=== PATIENT | male | born 1990 | race Caucasian/White ===

== ENCOUNTER 2017-09-09 13:23 | Inpatient (IN) | payer OTHER ==
[~2017-09-09] VITALS: Ht 172.7 cm; Wt 77.1 kg
[2017-09-09] MEDS ORDERED: NS IV 1000 ML 1,000 ML IV ONE ×2 (13:37→14:32)
[2017-09-09] MEDS ORDERED: fentaNYL INJECTION 100 MCG/2 ML AMP IVP STA (13:37)
[2017-09-09 13:45] LABS: BASOPHILS % (AUTO) 0 % (0-10); EOSINOPHILS % (AUTO) 0 % (0-10); HEMATOCRIT 48 % (40-54); HEMOGLOBIN 16.7 G/DL (13.3-17.7); LYMPHOCYTES # (AUTO) 0.8 X 10^3 (1.0-4.0); LYMPHOCYTES % (AUTO) 5 % (12-44); MEAN CORPUSCULAR HEMOGLOBIN 31 PG (25-34); MEAN CORPUSCULAR HGB CONC 35 G/DL (32-36); MEAN CORPUSCULAR VOLUME 89 FL (80-99); MEAN PLATELET VOLUME 10.3 FL (7.4-10.4); MONOCYTES # (AUTO) 1.7 X 10^3 (0.0-1.0); MONOCYTES % (AUTO) 9 % (0-12); NEUTROPHILS # (AUTO) 15.3 X 10^3 (1.8-7.8); NEUTROPHILS % (AUTO) 86 % (42-75); PLATELET COUNT 248 10^3/uL (130-400); RED BLOOD COUNT 5.32 10^6/uL (4.35-5.85); WHITE BLOOD COUNT 17.8 10^3/uL (4.3-11.0)
[2017-09-09] MEDS ORDERED: ONDANSETRON 4 MG/2 ML (SDV) Z0FRAN IVP ONE ×2 (13:45→14:45)
[2017-09-09] MEDS ORDERED: IOHEXOL 350 MG/ML 100 ML (OMNIPAQUE 350) VIAL IV ONE (14:00)
[2017-09-09] MEDS ORDERED: NS 100 ML (IVPB) BAG IV ONE (14:00)
[2017-09-09 14:03] LABS: ALANINE AMINOTRANSFERASE 14 U/L (0-55); ALBUMIN 4.4 GM/DL (3.2-4.5); ALKALINE PHOSPHATASE 64 U/L (40-136); BILIRUBIN,TOTAL 1.3 MG/DL (0.1-1.0); BUN/CREATININE RATIO 11; CALCIUM 9.3 MG/DL (8.5-10.1); CARBON DIOXIDE 22 MMOL/L (21-32); CHLORIDE 99 MMOL/L (98-107); GFR ESTIMATED > 60; GLUCOSE 139 MG/DL (70-105); LIPASE 15 U/L (8-78); POTASSIUM 3.5 MMOL/L (3.6-5.0); SODIUM 135 MMOL/L (135-145); TOTAL PROTEIN 7.4 GM/DL (6.4-8.2)
[2017-09-09 14:07] LABS: LYMPHOCYTES % (MANUAL) 5 %; MONOCYTES % (MANUAL) 6 %; NEUTROPHILS % (MANUAL) 89 %; RBC MORPH NORMAL
[2017-09-09] MEDS ORDERED: NS IV 500 ML 500 ML IV ONE (14:32)
[2017-09-09] MEDS ORDERED: KETOROLAC 30 MG/ML VIAL IVP STA (14:38)
[2017-09-09] MEDS ORDERED: morphine INJ 10 MG/ML 1ML (SYR OR VIAL) IVP STA (14:38)
--- NOTE | 2017-09-09 14:42 | Diagnostic Imaging Report ---
PROCEDURE: CT abdomen and pelvis with and without contrast. TECHNIQUE: Precontrast acquisitions were acquired through the abdomen and pelvis. Multiple contiguous axial images were obtained through the abdomen and pelvis after the administration of intravenous contrast. INDICATION: Right lower quadrant and right groin pain. There are no prior studies available for comparison. FINDINGS: There is a 1.6 x 2.0 cm tubular structure in the right lower quadrant. I do suspect that this represents an inflamed appendix. Furthermore, there are several droplets of gas near the tip of this tubular structure consistent with perforation of the appendix. There is also marked distortion of the mesenteric fat in the right lower quadrant. This does suggest edema/inflammation. There is a small 2.3 x 3.4 CM collection of fluid along the anterior aspect of the right lower quadrant. This may represent an infected fluid. There is no evidence for drainable abscess at this time. The images through the upper abdomen also show a few droplets of gas about the liver and the gallbladder fossa consistent with perforation of the appendix. There are numerous fluid-filled segments of small bowel in the left mid abdomen. Most likely these are related to an ileus secondary to the ruptured appendix. There is also moderate amount of free fluid in the pelvis. This too is most likely a sequela of the right lower quadrant pathology. The urinary bladder and prostate gland are grossly unremarkable. The kidneys, the liver, the spleen, the pancreas, the adrenals, the gallbladder, the aorta and inferior vena cava show no sign of an acute abnormality. The stomach is partially filled with fluid and consequently difficult to assess. There does appear to be a 3.3 x 4.8 cm hiatal hernia. This is somewhat unusual in a patient of this age. The lung bases are clear. The bone windows show no sign of a fracture or destructive lesion. IMPRESSION: 1. The findings would be consistent with appendicitis with perforation of the appendix. There is marked distortion of mesenteric fat in the right lower quadrant reflecting edema/inflammation. There is a small amount of infected fluid in this area but there is no drainable abscess identified at this time. 2. The fluid-filled segments of small bowel are most likely related to an ileus secondary to the inflammation of the appendix. There is also a moderate amount of free fluid in the pelvis. 3. There is no acute abnormality of the abdomen or pelvis noted otherwise. 4. There is a hiatal hernia. 5. These results were discussed with OCTAVIO Falk at the time of this dictation. CRITICAL FINDING Dictated by: Dictated on workstation # [id number]
[2017-09-09] MEDS ORDERED: FAMOTIDINE 20MG/2ML IV (PEPCID) IV STA (14:45)
[2017-09-09] MEDS ORDERED: PIPERACILLIN SODIUM/TAZOBACTAM 4.5 GM in NS (IVPB) 100 ML IV ONE (14:45)
--- OUTSIDE RECORDS SUMMARY | 2017-09-09 15:06 | XMS REPORT | Referral Summary ---
Author Author [facility] Organization [facility] Address Unknown Phone Unavailable Care Team Providers Care Board Attendant Name Role Phone Jenaro Tsai PCP Encounter VC Date(s): 08/26/16 - 08/26/16 [facility] [id number] [id number] Discharge Diagnosis: Visit for well man health check Discharge Diagnosis: Tobacco use Discharge Disposition: 01-Home or Self Care Attending Physician: Jenaro Tsai DO Admitting Physician: Jenaro Tsai DO Vital Signs Most recent to 1 oldest [Reference Range]: Peripheral Pulse 91 bpm Rate [60-100 bpm] (08/26/16 9:12 AM) Blood Pressure 134/94 mmHg [90-140/60-90 mmHg] (08/26/16 9:12 AM) Problem List Condition Effective Dates Status Health Status Informant Tobacco Active use(Confirmed) Allergies, Adverse Reactions, Alerts No Known Medication Allergies Medications Chantix Starter Pack 0.5 mg-1 mg oral tablet 1 tabs, Oral, BID, as directed on package labeling, X 30 days, # 60 tabs, 0 Refill(s), Pharmacy: [address] [id number] [facility] Start Date: 08/26/16 Stop Date: 09/25/16 Status: Ordered Misc Medication steroid ointment for skin, 0 Refill(s) Start Date: 08/26/16 Status: Ordered Results No data available for this section Immunizations No data available for this section Procedures No data available for this section Social History Social History Type Response Smoking Status Current every day smoker Assessment and Plan Extracted from: Title: OV [employer]OR [employer] Well Male Exam and Author: Jenaro Tsai DO Date: 08/26/16 tobacco Impression and Plan Diagnosis Visit for well man health check ([id number] Z00.00, Discharge, Medical). Tobacco use ([id number] Z72.0, Discharge, Medical). Orders Orders (Selected) Prescriptions Prescribed Chantix Starter Pack 0.5 mg-1 mg oral tablet: 1 tabs, Oral, BID, for 30 days, as directed on package labeling, 60 tabs, 0 Refill(s). Doing well. Repeat well male exam in a year. Patient was given discount card for Chantix and I sent prescription as above. He will make an appointment for 3 month follow-up and will let me know if he has any issues prior to that. She will contact the week before he runs out of his prescription and we will send a continuing month pack as long as he is not having significant side effects. I did camp counselor him on cholesterol screening and he will let me know if his insurance wants that. Call with questions or concerns before his next office visit. 3-10 minutes spent in tobacco cessation counselling.
--- NOTE | 2017-09-09 15:44 | ED GU-Male ---
General Chief Complaint: Abdominal/GI Problems Stated Complaint: SEPSIS,RUPTURED APPENDICITIS,HEMATEMSIS Nursing Triage Note: PT REPORTS ABD PAIN, N/V, AND FEVER SINCE YESTERDAY. Source: patient Exam Limitations: no limitations History of Present Illness Date Seen by Provider: Sep 09, 2017 Time Seen by Provider: 13:30 Allergies and Home Medications Allergies Coded Allergies: No Known Drug Allergies (Unverified , 09/09/17) Past Mwszzki-Twfjwx-Nmoeie Hx Patient Social History Alcohol Use: Occasionally Uses Recreational Drug Use: No Smoking Status: Current Everyday Smoker Type Used: Cigarettes 2nd Hand Smoke Exposure: No Recent Foreign Travel: No Contact w/Someone Who Travel: No Recent Infectious Disease Expo: No Recent Hopitalizations: No Seasonal Allergies Seasonal Allergies: No Surgeries History of Surgeries: No Physical Exam Vital Signs Vital Signs - First Documented 09/09/17 13:30 Temp 100.0 Pulse 126 Resp 20 B/P (MAP) 148/100 (116) Pulse Ox 97 O2 Delivery Room Air Capillary Refill : Less Than 3 Seconds Focused Exam Evaluation Lactate Level Laboratory Tests 09/09/17 14:17: Lactic Acid Level 3.55*H Lactic Acid Level Laboratory Tests Test 09/09/17 14:17 Lactic Acid Level 3.55 MMOL/L (0.50-2.00) *H Progress/Results/Core Measures Suspected Sepsis Recent Fever Within 48 Hours: No Infection Criteria Present: None New/Unexplained Altered Menta: No Sepsis Screen: No Definite Risk Sepsis Diagnosis: SIRS Temperature:100.0 Pulse: 126 Respiratory Rate: 20 Laboratory Tests 09/09/17 13:37: White Blood Count 17.8H Blood Pressure 148 /100 Mean: 116 Laboratory Tests 09/09/17 14:17: Lactic Acid Level 3.55*H Laboratory Tests 09/09/17 13:37: Creatinine 0.90, Platelet Count 248, Total Bilirubin 1.3H Results/Orders Lab Results Laboratory Tests Test 09/09/17 13:37 09/09/17 14:17 Range/Units White Blood Count 17.8 H 4.3-11.0 10^3/uL Red Blood Count 5.32 4.35-5.85 10^6/uL Hemoglobin 16.7 13.3-17.7 G/DL Hematocrit 48 40-54 % Mean Corpuscular Volume 89 80-99 FL Mean Corpuscular Hemoglobin 31 25-34 PG Mean Corpuscular Hemoglobin Concent 35 32-36 G/DL Red Cell Distribution Width 14.0 10.0-14.5 % Platelet Count 248 130-400 10^3/uL Mean Platelet Volume 10.3 7.4-10.4 FL Neutrophils (%) (Auto) 86 H 42-75 % Lymphocytes (%) (Auto) 5 L 12-44 % Monocytes (%) (Auto) 9 0-12 % Eosinophils (%) (Auto) 0 0-10 % Basophils (%) (Auto) 0 0-10 % Neutrophils # (Auto) 15.3 H 1.8-7.8 X 10^3 Lymphocytes # (Auto) 0.8 L 1.0-4.0 X 10^3 Monocytes # (Auto) 1.7 H 0.0-1.0 X 10^3 Eosinophils # (Auto) 0.0 0.0-0.3 10^3/uL Basophils # (Auto) 0.0 0.0-0.1 10^3/uL Neutrophils % (Manual) 89 % Lymphocytes % (Manual) 5 % Monocytes % (Manual) 6 % Blood Morphology Comment NORMAL Sodium Level 135 135-145 MMOL/L Potassium Level 3.5 L 3.6-5.0 MMOL/L Chloride Level 99 98-107 MMOL/L Carbon Dioxide Level 22 21-32 MMOL/L Anion Gap 14 5-14 MMOL/L Blood Urea Nitrogen 10 7-18 MG/DL Creatinine 0.90 0.60-1.30 MG/DL Estimat Glomerular Filtration Rate > 60 BUN/Creatinine Ratio 11 Glucose Level 139 H 70-105 MG/DL Calcium Level 9.3 8.5-10.1 MG/DL Total Bilirubin 1.3 H 0.1-1.0 MG/DL Aspartate Amino Transf (AST/SGOT) 14 5-34 U/L Alanine Aminotransferase (ALT/SGPT) 14 0-55 U/L Alkaline Phosphatase 64 40-136 U/L C-Reactive Protein High Sensitivity 18.99 H 0.00-0.50 MG/DL Total Protein 7.4 6.4-8.2 GM/DL Albumin 4.4 3.2-4.5 GM/DL Lipase 15 8-78 U/L Lactic Acid Level 3.55 *H 0.50-2.00 MMOL/L My Orders Orders - CHUYITA GREENWOOD Saline Lock/Iv-Start (09/09/17 13:37) Cbc With Automated Diff (09/09/17 13:37) Comprehensive Metabolic Panel (09/09/17 13:37) Hs C Reactive Protein (09/09/17 13:37) Lipase (09/09/17 13:37) Ua Culture If Indicated (09/09/17 13:37) Ns Iv 1000 Ml (Sodium Chloride 0.9%) (09/09/17 13:37) Ondansetron Injection (Zofran Injectio (09/09/17 13:45) Fentanyl Injection (Sublimaze Injection (09/09/17 13:37) Ct Abdomen/Pelvis W Wo (09/09/17 13:42) Drug Screen Stat (Urine) (09/09/17 13:44) Manual Differential (09/09/17 13:37) Iohexol Injection (Omnipaque 350 Mg/Ml 1 (09/09/17 14:00) Ns (Ivpb) (Sodium Chloride 0.9% Ivpb Bag (09/09/17 14:00) Lactic Acid Analyzer (09/09/17 13:48) Blood Culture (09/09/17 13:48) Piperacillin Sodium/Tazobactam (Zosyn Vi (09/09/17 14:45) Ns Iv 500 Ml (Sodium Chloride 0.9%) (09/09/17 14:32) Ns Iv 1000 Ml (Sodium Chloride 0.9%) (09/09/17 14:32) Ketorolac Injection (Toradol Injection) (09/09/17 14:38) Morphine Injection (Morphine Injection (09/09/17 14:38) Ondansetron Injection (Zofran Injectio (09/09/17 14:45) Famotidine Injection (Pepcid Injection) (09/09/17 14:45) Medications Given in ED Current Medications Medications Dose Ordered Sig/Candice Route Start Time Stop Time Status Last Admin Dose Admin Iohexol 100 ml ONCE ONCE IV 09/09/17 14:00 09/09/17 14:01 DC 09/09/17 14:01 100 ML Ondansetron HCl 4 mg ONCE ONCE IVP 09/09/17 13:45 09/09/17 13:46 DC 09/09/17 13:48 4 MG Ondansetron HCl 4 mg ONCE ONCE IVP 09/09/17 14:45 09/09/17 14:47 DC 09/09/17 14:49 4 MG Piperacillin Sod/ Tazobactam Sod 4.5 gm/Sodium Chloride 100 ml @ 200 mls/hr ONCE ONCE IV 09/09/17 14:45 09/09/17 15:14 DC 09/09/17 15:35 200 MLS/HR Sodium Chloride 100 ml ONCE ONCE IV 09/09/17 14:00 09/09/17 14:01 DC 09/09/17 14:01 100 ML Sodium Chloride 1,000 ml @ 0 mls/hr Q0M ONCE IV 09/09/17 13:37 09/09/17 13:40 DC 09/09/17 13:48 0 MLS/HR Vital Signs/I&O Vital Sign - Last 12Hours 09/09/17 13:30 Temp 100.0 Pulse 126 Resp 20 B/P (MAP) 148/100 (116) Pulse Ox 97 O2 Delivery Room Air Capillary Refill : Less Than 3 Seconds Blood Pressure Mean: 116 Departure Impression Disposition: ADMITTED INPATIENT Condition: Improved Departure-Patient Inst. Referrals: NO,LOCAL PHYSICIAN (PCP) Primary Care Physician CHUYITA GREENWOOD Sep 09, 2017 15:43
[2017-09-09 15:46] VITALS: BP 136/81
[2017-09-09] MEDS ORDERED: METHYLNALTREXONE 12 MG/0.6 ML (RELISTOR) VIAL SQ NR (16:24)
[2017-09-09] MEDS ORDERED: diphenhydrAMINE 50 MG/ML INJ (BENADRYL) IV PRN (16:30)
[2017-09-09] MEDS ORDERED: FAMOTIDINE 20MG/2ML IV (PEPCID) IV PRN (16:30)
[2017-09-09] MEDS ORDERED: ONDANSETRON 4 MG/2 ML (SDV) Z0FRAN IV PRN (16:30)
[2017-09-09] MEDS ORDERED: PROMETHAZINE INJ 25 MG/ML (PHENERGAN) AMP IV PRN (16:30)
[2017-09-09] MEDS ORDERED: HYDROcodone/APAP 5 MG/325 MG (LORTAB) TAB PO PRN (16:30)
[2017-09-09 16:46] VITALS: BP 122/72
[2017-09-09] MEDS: morphine PCA 30 MG/30 ML VIAL IV PRN (16:57)
[2017-09-09] MEDS: NS W/KCL 20 MEQ/L 1,000 ML IV SCH ×2 (16:58→20:47)
[2017-09-09 17:46] VITALS: BP 117/73
[2017-09-09 18:46] VITALS: BP 119/77
[2017-09-09] MEDS: PANTOPRAZOLE 40 MG/10 ML (PROTONIX) VIAL IV SCH (20:47)
[2017-09-09] MEDS: PIPERACILLIN SODIUM/TAZOBACTAM 4.5 GM in NS (IVPB) 100 ML IV SCH (20:48)
[2017-09-09 21:30] VITALS: BP 123/82
[2017-09-09 23:04] LABS: BILIRUBIN,URINE NEGATIVE (NEGATIVE); CLARITY,URINE CLEAR; COLOR,URINE YELLOW; GLUCOSE, URINE (UA) NEGATIVE (NEGATIVE); KETONES,URINE NEGATIVE (NEGATIVE); LEUKOCYTE ESTERASE ,URINE 1+ (NEGATIVE); NITRITE,URINE NEGATIVE (NEGATIVE); PH,URINE 6.5 (5-9); PROTEIN,URINE 2+ (NEGATIVE); UROBILINOGEN,URINE 1 MG/DL (NORMAL)
[2017-09-09 23:11] LABS: BACTERIA,URINE NEGATIVE /HPF; RBC,URINE RARE /HPF; WBC,URINE 0-2 /HPF
[2017-09-09 23:18] LABS: AMPHETAMINE SCREEN, URINE NEGATIVE (NEGATIVE); BARBITURATE SCREEN URINE NEGATIVE (NEGATIVE); BENZODIAZEPINES SCREEN URINE NEGATIVE (NEGATIVE); CANNABINOID SCREEN, URINE NEGATIVE (NEGATIVE); COCAINE SCREEN URINE NEGATIVE (NEGATIVE); METHADONE STAT NEGATIVE (NEGATIVE); METHAMPHETAMINE SCREEN URINE S NEGATIVE (NEGATIVE); OPIATE SCREEN URINE POSITIVE (NEGATIVE); OXYCODONE STAT NEGATIVE (NEGATIVE); PROPOXYPHENE STAT NEGATIVE (NEGATIVE); TRICYCLIC ANTIDEPRESSANTS SCRE NEGATIVE (NEGATIVE)
[2017-09-10] VITALS: BP 117/57
[2017-09-10] MEDS: NS W/KCL 20 MEQ/L 1,000 ML IV SCH ×6 (01:02→21:09)
[2017-09-10 04:00] VITALS: BP 123/60
[2017-09-10] MEDS: PIPERACILLIN SODIUM/TAZOBACTAM 4.5 GM in NS (IVPB) 100 ML IV SCH ×3 (05:10→21:09)
[2017-09-10] MEDS: ACETAMINOPHEN 500 MG TAB (TYLENOL) PO PRN ×2 (05:11→16:34)
[2017-09-10 06:37] LABS: BASOPHILS % (AUTO) 0 % (0-10); EOSINOPHILS % (AUTO) 0 % (0-10); HEMATOCRIT 41 % (40-54); HEMOGLOBIN 14.1 G/DL (13.3-17.7); LYMPHOCYTES # (AUTO) 0.7 X 10^3 (1.0-4.0); LYMPHOCYTES % (AUTO) 6 % (12-44); MEAN CORPUSCULAR HEMOGLOBIN 31 PG (25-34); MEAN CORPUSCULAR HGB CONC 34 G/DL (32-36); MEAN CORPUSCULAR VOLUME 91 FL (80-99); MEAN PLATELET VOLUME 10.1 FL (7.4-10.4); MONOCYTES # (AUTO) 0.8 X 10^3 (0.0-1.0); MONOCYTES % (AUTO) 7 % (0-12); NEUTROPHILS % (AUTO) 87 % (42-75); PLATELET COUNT 181 10^3/uL (130-400); RED BLOOD COUNT 4.53 10^6/uL (4.35-5.85); RED CELL DISTRIBUTION WIDTH 14.5 % (10.0-14.5); WHITE BLOOD COUNT 11.5 10^3/uL (4.3-11.0)
[2017-09-10 06:55] LABS: ALANINE AMINOTRANSFERASE 12 U/L (0-55); ALBUMIN 3.1 GM/DL (3.2-4.5); ALKALINE PHOSPHATASE 39 U/L (40-136); BILIRUBIN,TOTAL 1.1 MG/DL (0.1-1.0); BUN/CREATININE RATIO 16; CALCIUM 7.4 MG/DL (8.5-10.1); CARBON DIOXIDE 20 MMOL/L (21-32); CHLORIDE 108 MMOL/L (98-107); CREATININE SERUM 0.85 MG/DL (0.60-1.30); GFR ESTIMATED > 60; GLUCOSE 112 MG/DL (70-105); POTASSIUM 4.6 MMOL/L (3.6-5.0); SODIUM 135 MMOL/L (135-145); TOTAL PROTEIN 5.4 GM/DL (6.4-8.2)
[2017-09-10 08:00] VITALS: BP 121/64
[2017-09-10] MEDS: PANTOPRAZOLE 40 MG/10 ML (PROTONIX) VIAL IV SCH ×2 (08:08→21:08)
[2017-09-10] MEDS: morphine PCA 30 MG/30 ML VIAL IV PRN ×2 (09:21→22:29)
--- NOTE | 2017-09-10 11:16 | HISTORY AND PHYSICAL ---
DATE OF SERVICE: 09/09/2017 HISTORY OF PRESENT ILLNESS: The patient is a 27-year-old male who presented to [facility] Emergency Department with pain in the right lower abdominal quadrant. This gentleman was traveling from [place] to [place] for his work. He reports that the pain started in the abdomen which localized more towards the right lower abdominal quadrant 3 to 4 days before presenting to the emergency room. He states that the pain worsened and he developed fevers and chills. A CT scan was performed which did show significant inflammatory phlegmon as well as a small contained pockets of air consistent with a perforated appendicitis which has walled off. Since being admitted he was started on IV antibiotics as well as pain medication. He has felt better. It appears clinically as well and on CT scan that he does have an ileus and we will continue with a clear liquid diet; however, slowly advance. A CT scan does not show any drainable abscess at this time. PAST MEDICAL HISTORY: None. PAST SURGICAL HISTORY: None. ALLERGIES: No known drug allergies. MEDICATIONS: None. SOCIAL HISTORY: Positive smoke, five pack years. Social alcohol. FAMILY HISTORY: Noncontributory. VITAL SIGNS: Temperature 100.1, blood pressure 121/64, pulse 124, respirations 18, pulse ox 93% on room air. REVIEW OF SYSTEMS: A well-nourished male currently in no acute distress. He is not experiencing any shortness of breath or difficulty breathing. No chest pain, palpitations, or diaphoresis. He feels thirsty; however, after taking in liquids, he will feel nauseous; however, no vomiting. He reports not having a bowel movement for greater than one week. He does not report any previous history of red blood per rectum nor any dark tarry stools. Intermittent episodes of fevers and chills for the past several days. No recent inadvertent weight loss. All other review of system is negative. PHYSICAL EXAMINATION: CHEST: Clear. Good breath sounds bilaterally. HEART: Regular. No murmurs. HEENT: No scleral icterus. NECK: No cervical lymphadenopathy. ABDOMEN: Soft. There is a firmness in the right lower abdominal quadrant with pain to palpation at McBurney's point. There is voluntary guarding. SKIN: Warm and dry. LABORATORY DATA: WBC 11.5, hemoglobin 14.1, hematocrit 41, platelets 181. ASSESSMENT AND PLAN: A 27-year-old male with a perforated appendicitis which has walled off and contained. At this time, there is no drainable abscess or need for drain placement. We will recommend conservative management with IV hydration, IV antibiotics as well as bowel rest. Once he is able to tolerate adequate amounts of liquids, has good pain control with oral pain medication and a good functional capacity, we will discharge him home. He lives in [place], [place]; however, the option was given to him to proceed with continued conservative management which runs a risk of approximately 14% reoccurrence rate versus an elective appendectomy when the inflammation subsides, which will be approximately 6 to 8 weeks. Job ID: [id number] DocumentID: [id number] Dictated Date: 09/10/2017 11:01:51 Industrial Controller Date: 09/10/2017 11:15:41 Dictated By: TIFFANY DUNLAP MD MTDD
[2017-09-10 12:00] VITALS: BP 134/69
[2017-09-10] MEDS: POLYETHYLENE GLYCOL 17 GM (MIRALAX) PACK PO PRN ×2 (16:34→21:13)
[2017-09-10 16:56] VITALS: BP 144/75
[2017-09-10 20:00] VITALS: BP 125/70
[2017-09-10] MEDS: DOCUSATE SODIUM 100 MG (COLACE) CAP PO SCH (21:08)
[2017-09-11] VITALS: BP 132/69
[2017-09-11 04:00] VITALS: BP 135/77
[2017-09-11] MEDS: NS W/KCL 20 MEQ/L 1,000 ML IV SCH ×6 (05:02→18:31)
[2017-09-11] MEDS: PIPERACILLIN SODIUM/TAZOBACTAM 4.5 GM in NS (IVPB) 100 ML IV SCH ×3 (05:02→21:59)
[2017-09-11 08:00] VITALS: BP 139/84
[2017-09-11] MEDS: PANTOPRAZOLE 40 MG/10 ML (PROTONIX) VIAL IV SCH ×2 (08:52→21:59)
[2017-09-11] MEDS: ACETAMINOPHEN 500 MG TAB (TYLENOL) PO PRN ×2 (08:52→19:55)
[2017-09-11] MEDS: POLYETHYLENE GLYCOL 17 GM (MIRALAX) PACK PO PRN (08:52)
[2017-09-11] MEDS: DOCUSATE SODIUM 100 MG (COLACE) CAP PO SCH ×2 (08:52→21:59)
[2017-09-11 12:00] VITALS: BP 152/81
[2017-09-11] MEDS: KETOROLAC 30 MG/ML VIAL IV PRN ×2 (12:45→18:31)
[2017-09-11 15:50] VITALS: BP 151/84
[2017-09-11 19:40] VITALS: BP 134/84
--- NOTE | 2017-09-11 21:37 | Progress Note (SOAP) ---
Subjective Date Seen by Provider: Sep 11, 2017 Time Seen by Provider: 21:00 Subjective/Events-last exam abominal distention with no flatulence nor BM. pain controlled. intermittent fevers. likely ileus from contained perforated appendicitis. Focused Exam Evaluation Lactate Level Laboratory Tests 09/09/17 14:17: Lactic Acid Level 3.55*H 09/09/17 16:12: Lactic Acid Level 1.13 Objective Exam Vital Signs Date Time Temp Pulse Resp B/P (MAP) Pulse Ox O2 Delivery O2 Flow Rate FiO2 09/11/17 21:27 99.8 09/11/17 19:55 100.8 09/11/17 19:05 100.3 09/11/17 18:36 18 09/11/17 18:31 101.8 09/11/17 15:50 99.5 112 18 151/84 (106) 92 Room Air 09/11/17 12:45 100.1 09/11/17 12:00 99.6 118 20 152/81 (104) 93 Room Air 09/11/17 08:52 100.8 09/11/17 08:00 100.8 134 18 139/84 (102) 91 Room Air 09/11/17 04:00 100.4 128 18 135/77 (96) 91 Room Air 09/11/17 00:00 99.9 121 20 132/69 (90) 90 Room Air 09/10/17 22:29 20 I & O 09/11/17 07:00 Intake Total 4200 ml Output Total 1825 ml Balance 2375 ml Capillary Refill : Less Than 3 Seconds General Appearance: No Apparent Distress HEENT: PERRL/EOMI Neck: Full Range of Motion Respiratory: Lungs Clear, Decreased Breath Sounds Cardiovascular: Regular Rate, Rhythm Gastrointestinal: soft, distended Extremity: Normal Capillary Refill Neurologic/Psychiatric: Alert, Oriented x3 Skin: Normal Color Lymphatic: No Adenopathy Results Lab Microbiology 09/09/17 Blood Culture - Preliminary, Resulted No growth Assessment/Plan Assessment/Plan Assess & Plan/Chief Complaint contained perforated appendicitis. ileus. only sips of clears for now. retaining fluid in bilateral lower extremities. will start lasix. continue abx. WBC improving. increase ambulation to promote bowel fxn. Clinical Quality Measures DVT/VTE Risk/Contraindication: Risk Factor Score Per Nursin RFS Level Per Nursing on Admit: 1=Low/No VTE PPX TIFFANY DUNLAP MD Sep 11, 2017 9:37 pm
[2017-09-11] MEDS ORDERED: FUROSEMIDE 40 MG/4 ML INJ (LASIX) IVP ONE (21:45)
[2017-09-11] MEDS: LORazepam INJ 2 MG/ML (ATIVAN) VIAL IVP PRN (22:00)
[2017-09-12] VITALS: BP 136/93
[2017-09-12] MEDS: NS W/KCL 20 MEQ/L 1,000 ML IV SCH ×4 (01:20→12:57)
[2017-09-12 04:00] VITALS: BP 124/79
[2017-09-12] MEDS: PIPERACILLIN SODIUM/TAZOBACTAM 4.5 GM in NS (IVPB) 100 ML IV SCH ×3 (05:14→20:17)
[2017-09-12] MEDS: ACETAMINOPHEN 500 MG TAB (TYLENOL) PO PRN ×2 (05:14→20:41)
[2017-09-12 08:00] VITALS: BP 127/68
[2017-09-12 08:42] LABS: HEMOGLOBIN 12.5 G/DL (13.3-17.7); MEAN PLATELET VOLUME 9.3 FL (7.4-10.4); RED BLOOD COUNT 3.98 10^6/uL (4.35-5.85); WHITE BLOOD COUNT 13.8 10^3/uL (4.3-11.0)
[2017-09-12 09:03] LABS: BUN/CREATININE RATIO 18; CALCIUM 8.6 MG/DL (8.5-10.1); CARBON DIOXIDE 22 MMOL/L (21-32); CHLORIDE 108 MMOL/L (98-107); CREATININE SERUM 0.72 MG/DL (0.60-1.30); GFR ESTIMATED > 60; GLUCOSE 90 MG/DL (70-105); SODIUM 137 MMOL/L (135-145)
[2017-09-12] MEDS: FUROSEMIDE 40 MG/4 ML INJ (LASIX) IVP SCH (09:37)
[2017-09-12] MEDS: PANTOPRAZOLE 40 MG/10 ML (PROTONIX) VIAL IV SCH ×2 (10:26→20:09)
[2017-09-12] MEDS: DOCUSATE SODIUM 100 MG (COLACE) CAP PO SCH ×2 (10:28→20:09)
[2017-09-12 12:00] VITALS: BP 123/64
--- NOTE | 2017-09-12 14:48 | Progress Note (SOAP) ---
Subjective Date Seen by Provider: Sep 12, 2017 Time Seen by Provider: 14:00 Subjective/Events-last exam dong better today. had multiple large BM's and feels less distended. respirations improved as well. no fever/chills. Focused Exam Evaluation Lactate Level Laboratory Tests 09/09/17 16:12: Lactic Acid Level 1.13 Objective Exam Vital Signs Date Time Temp Pulse Resp B/P (MAP) Pulse Ox O2 Delivery O2 Flow Rate FiO2 09/12/17 12:48 Room Air 09/12/17 10:25 93 Room Air 09/12/17 08:00 98.7 118 24 127/68 (87) 92 Room Air 09/12/17 07:16 91 Room Air 09/12/17 06:57 100.2 09/12/17 05:25 22 09/12/17 05:14 101.0 09/12/17 05:00 100.4 09/12/17 04:00 101.2 130 24 124/79 (94) 94 OxyMask 2.00 09/12/17 02:58 92 Room Air 2.00 09/12/17 00:00 98.3 117 16 136/93 (107) 96 Room Air 09/11/17 21:35 96 OxyMask 2.00 09/11/17 21:00 OxyMask 2.00 09/11/17 19:55 100.8 09/11/17 19:40 100.1 126 24 134/84 (101) 89 Room Air 09/11/17 19:05 100.3 09/11/17 18:36 18 09/11/17 18:31 101.8 09/11/17 15:50 99.5 112 18 151/84 (106) 92 Room Air I & O 09/12/17 07:00 Intake Total 2400 ml Output Total 825 ml Balance 1575 ml Capillary Refill : Less Than 3 Seconds General Appearance: No Apparent Distress HEENT: PERRL/EOMI Neck: Full Range of Motion Respiratory: Chest Non Tender, Lungs Clear Cardiovascular: Regular Rate, Rhythm Gastrointestinal: soft, tenderness Extremity: Normal Capillary Refill Neurologic/Psychiatric: Alert, Oriented x3 Skin: Normal Color Lymphatic: No Adenopathy Results Lab Laboratory Tests 09/12/17 08:34: White Blood Count 13.8H, Red Blood Count 3.98L, Hemoglobin 12.5L, Hematocrit 36L , Mean Corpuscular Volume 90, Mean Corpuscular Hemoglobin 31, Mean Corpuscular Hemoglobin Concent 35, Red Cell Distribution Width 14.0, Platelet Count 199, Mean Platelet Volume 9.3, Sodium Level 137, Potassium Level 4.0, Chloride Level 108H, Carbon Dioxide Level 22, Anion Gap 7, Blood Urea Nitrogen 13, Creatinine 0.72, Estimat Glomerular Filtration Rate > 60, BUN/Creatinine Ratio 18, Glucose Level 90, Calcium Level 8.6 Microbiology 09/09/17 Blood Culture - Preliminary, Resulted No growth Assessment/Plan Assessment/Plan Assess & Plan/Chief Complaint contained perforated appendicitis. ileus. improving. retaining fluid in bilateral lower extremities. started on lasix with improvement. continue abx. continue ambulation. DYS3 diet. labs in am. Clinical Quality Measures DVT/VTE Risk/Contraindication: Risk Factor Score Per Nursin RFS Level Per Nursing on Admit: 1=Low/No VTE PPX TIFFANY DUNLAP MD Sep 12, 2017 14:48
[2017-09-12 15:50] VITALS: BP 143/76
[2017-09-12 19:15] VITALS: BP 131/75
[2017-09-13] VITALS: BP 130/72
[2017-09-13 04:00] VITALS: BP 134/69
[2017-09-13] MEDS: PIPERACILLIN SODIUM/TAZOBACTAM 4.5 GM in NS (IVPB) 100 ML IV SCH ×3 (04:31→21:31)
[2017-09-13 06:24] LABS: BASOPHILS % (AUTO) 0 % (0-10); EOSINOPHILS # (AUTO) 0.1 10^3/uL (0.0-0.3); EOSINOPHILS % (AUTO) 1 % (0-10); HEMATOCRIT 36 % (40-54); HEMOGLOBIN 12.4 G/DL (13.3-17.7); LYMPHOCYTES % (AUTO) 7 % (12-44); MEAN CORPUSCULAR HEMOGLOBIN 31 PG (25-34); MEAN CORPUSCULAR HGB CONC 35 G/DL (32-36); MEAN CORPUSCULAR VOLUME 89 FL (80-99); MEAN PLATELET VOLUME 9.4 FL (7.4-10.4); MONOCYTES # (AUTO) 0.9 X 10^3 (0.0-1.0); MONOCYTES % (AUTO) 7 % (0-12); NEUTROPHILS # (AUTO) 11.6 X 10^3 (1.8-7.8); NEUTROPHILS % (AUTO) 85 % (42-75); PLATELET COUNT 201 10^3/uL (130-400); RED BLOOD COUNT 3.98 10^6/uL (4.35-5.85); RED CELL DISTRIBUTION WIDTH 13.9 % (10.0-14.5); WHITE BLOOD COUNT 13.6 10^3/uL (4.3-11.0)
[2017-09-13 06:47] LABS: ALANINE AMINOTRANSFERASE 18 U/L (0-55); ALBUMIN 2.9 GM/DL (3.2-4.5); ALKALINE PHOSPHATASE 103 U/L (40-136); BILIRUBIN,TOTAL 0.5 MG/DL (0.1-1.0); BUN/CREATININE RATIO 16; CALCIUM 8.7 MG/DL (8.5-10.1); CARBON DIOXIDE 24 MMOL/L (21-32); CHLORIDE 105 MMOL/L (98-107); GFR ESTIMATED > 60; GLUCOSE 91 MG/DL (70-105); POTASSIUM 3.6 MMOL/L (3.6-5.0); SODIUM 137 MMOL/L (135-145); TOTAL PROTEIN 5.5 GM/DL (6.4-8.2)
[2017-09-13 08:00] VITALS: BP 121/77
[2017-09-13] MEDS: PANTOPRAZOLE 40 MG/10 ML (PROTONIX) VIAL IV SCH ×2 (08:47→21:31)
[2017-09-13] MEDS: FUROSEMIDE 40 MG/4 ML INJ (LASIX) IVP SCH (08:47)
[2017-09-13] MEDS: DOCUSATE SODIUM 100 MG (COLACE) CAP PO SCH ×2 (08:47→21:31)
[2017-09-13 12:53] VITALS: BP 121/77
[2017-09-13 15:35] VITALS: BP 132/79
--- NOTE | 2017-09-13 16:46 | Progress Note (SOAP) ---
Subjective Date Seen by Provider: Sep 13, 2017 Time Seen by Provider: 13:00 Subjective/Events-last exam doing better. tolerating regular diet and having BM's. no fever/chills. pain controlled PO pain meds. Objective Exam Vital Signs Date Time Temp Pulse Resp B/P (MAP) Pulse Ox O2 Delivery O2 Flow Rate FiO2 09/13/17 12:53 97.0 74 20 121/77 (92) 96 Room Air 09/13/17 08:00 97.8 74 20 121/77 (92) 96 Room Air 09/13/17 04:00 98.2 71 18 134/69 (90) 94 Room Air 09/13/17 00:00 98.3 93 18 130/72 (91) 96 Room Air 09/12/17 21:11 99.3 09/12/17 21:11 99.3 09/12/17 20:41 100.2 09/12/17 20:17 Room Air 09/12/17 19:15 100.3 95 20 131/75 (93) 95 Room Air I & O 09/13/17 07:00 Intake Total 2460 ml Output Total 500 ml Balance 1960 ml Capillary Refill : Less Than 3 Seconds General Appearance: No Apparent Distress HEENT: PERRL/EOMI Neck: Full Range of Motion Respiratory: Chest Non Tender, Lungs Clear Cardiovascular: Regular Rate, Rhythm Gastrointestinal: normal bowel sounds, soft, tenderness Extremity: Normal Capillary Refill Neurologic/Psychiatric: Alert, Oriented x3 Skin: Normal Color Lymphatic: No Adenopathy Results Lab Laboratory Tests 09/13/17 05:42: White Blood Count 13.6H, Red Blood Count 3.98L, Hemoglobin 12.4L, Hematocrit 36L , Mean Corpuscular Volume 89, Mean Corpuscular Hemoglobin 31, Mean Corpuscular Hemoglobin Concent 35, Red Cell Distribution Width 13.9, Platelet Count 201, Mean Platelet Volume 9.4, Neutrophils (%) (Auto) 85H, Lymphocytes (%) (Auto) 7L , Monocytes (%) (Auto) 7, Eosinophils (%) (Auto) 1, Basophils (%) (Auto) 0, Neutrophils # (Auto) 11.6H, Lymphocytes # (Auto) 1.0, Monocytes # (Auto) 0.9, Eosinophils # (Auto) 0.1, Basophils # (Auto) 0.0, Sodium Level 137, Potassium Level 3.6, Chloride Level 105, Carbon Dioxide Level 24, Anion Gap 8, Blood Urea Nitrogen 11, Creatinine 0.70, Estimat Glomerular Filtration Rate > 60, BUN/ Creatinine Ratio 16, Glucose Level 91, Calcium Level 8.7, Total Bilirubin 0.5, Aspartate Amino Transf (AST/SGOT) 31, Alanine Aminotransferase (ALT/SGPT) 18, Alkaline Phosphatase 103, Total Protein 5.5L, Albumin 2.9L Microbiology 09/09/17 Blood Culture - Preliminary, Resulted No growth Assessment/Plan Assessment/Plan Assess & Plan/Chief Complaint contained perforated appendicitis. ileus. improving. retaining fluid in bilateral lower extremities. started on lasix with improvement. continue abx. continue ambulation. DYS3 diet. labs in am. if no fevers and maintenance/reduction WBC, home tomorrow. Clinical Quality Measures DVT/VTE Risk/Contraindication: Risk Factor Score Per Nursin RFS Level Per Nursing on Admit: 1=Low/No VTE PPX TIFFANY DUNLAP MD Sep 13, 2017 4:46 pm
[2017-09-13 19:50] VITALS: BP 127/70
[2017-09-13] MEDS: LORazepam INJ 2 MG/ML (ATIVAN) VIAL IVP PRN (21:31)
[2017-09-14] VITALS: BP 132/72
[2017-09-14] MEDS: PIPERACILLIN SODIUM/TAZOBACTAM 4.5 GM in NS (IVPB) 100 ML IV SCH ×2 (05:22→13:30)
[2017-09-14 08:00] VITALS: BP 155/94
[2017-09-14] MEDS: FUROSEMIDE 40 MG/4 ML INJ (LASIX) IVP SCH (09:03)
[2017-09-14] MEDS: DOCUSATE SODIUM 100 MG (COLACE) CAP PO SCH (09:03)
[2017-09-14] MEDS: PANTOPRAZOLE 40 MG/10 ML (PROTONIX) VIAL IV SCH (09:03)
[2017-09-14 10:44] VITALS: BP 155/94
[2017-09-14 14:20] VITALS: BP 155/94
--- NOTE | 2017-09-14 20:28 | Progress Note (SOAP) ---
Subjective Date Seen by Provider: Sep 14, 2017 Time Seen by Provider: 15:00 Subjective/Events-last exam doing well. afebrile for 48hrs. tolerating regular diet and having BM's. pain controlled with PO meds. ambulating well Objective Exam Vital Signs Date Time Temp Pulse Resp B/P (MAP) Pulse Ox O2 Delivery O2 Flow Rate FiO2 09/14/17 14:20 82 20 155/94 96 Room Air 09/14/17 10:44 82 20 155/94 96 Room Air 2.00 09/14/17 08:00 97.7 82 20 155/94 (114) 96 Room Air 09/14/17 00:00 99.5 82 17 132/72 (92) 97 Room Air I & O 09/14/17 07:00 Intake Total 2490 ml Balance 2490 ml Capillary Refill : Less Than 3 Seconds General Appearance: No Apparent Distress HEENT: PERRL/EOMI Neck: Full Range of Motion Respiratory: Chest Non Tender, Lungs Clear, Normal Breath Sounds Cardiovascular: Regular Rate, Rhythm Gastrointestinal: normal bowel sounds, soft, tenderness Extremity: Normal Capillary Refill Neurologic/Psychiatric: Alert, Oriented x3 Skin: Normal Color Lymphatic: No Adenopathy Results Lab Microbiology 09/09/17 Blood Culture - Final, Complete No growth 09/14/17 C. difficile GDH Antigen & Toxins - Final, Complete Assessment/Plan Assessment/Plan Assess & Plan/Chief Complaint contained perforated appendicitis. doing well. afebrile for almost 48 hours. tolerating regular diet and having normal BM's. ambulating well with adequate pain control with minimal meds. home today. Pt from [place] and instructed to f/u with PMD within 2 weeks. Clinical Quality Measures DVT/VTE Risk/Contraindication: Risk Factor Score Per Nursin RFS Level Per Nursing on Admit: 1=Low/No VTE PPX TIFFANY DUNLAP MD Sep 14, 2017 20:28
[2017-09-14] MEDS ORDERED: PANTOPRAZOLE 40 MG (PROTONIX) TAB PO SCH (21:00)
== END 2017-09-14 14:20 | disposition home or self-care (01) | DRG 372 ==
LOC: ER 13:25 → 4TH 14:45
PROVIDERS: ADMIT Surgery; ATTEND Surgery
DX: K35.2 Acute appendicitis with generalized peritonitis (principal); K56.7 Ileus, unspecified; F17.210 Nicotine dependence, cigarettes, uncomplicated
CPT/HCPCS: 36415; 74178; 80048; 80053; 80306; 81000; 83605; 83690; 85007; 85025; 85027; 86141; 87040; 87324; 87449; 94664; 94760; 96374; 96375; 96376